=== PATIENT | male | born 2000 | race Caucasian/White ===

== ENCOUNTER 2021-04-22 14:01 | Emergency (ER) | payer MEDICAID ==
[~2021-04-22] VITALS: Ht 177.8 cm; Wt 96.8 kg
[2021-04-22 14:46] VITALS: BP 138/54; PULSE 95; TEMP 97.8
== END 2021-04-22 14:45 | disposition home or self-care (01) ==
LOC: COL.ER 14:01
DX: R60.0 Localized edema (principal)

== ENCOUNTER 2021-04-22 22:14 | Emergency (ER) | payer MEDICAID ==
[~2021-04-22] VITALS: Ht 177.8 cm; Wt 96.8 kg
[2021-04-22 22:19] VITALS: TEMP 97.6
[2021-04-22 23:51] LABS: BASO % 0.2 % (0.0-2.0); EOS # 0.1 K/mm3 (0.0-0.7); EOS % 0.4 % (0.0-4.0); GRAN # 7.9 K/mm3 (1.4-6.5); GRAN % 58.5 % (42.2-75.2); HEMATOCRIT 47.6 % (36.0-47.0); HEMOGLOBIN 16.5 g/dl (12.5-16.1); LYMPH # 4.4 K/mm3 (1.2-3.4); LYMPH % 32.9 % (20.0-51.0); MEAN CELL VOLUME 86 fl (80.0-95.0); MEAN CORPUSCULAR HEMOGLOBIN 30 pg (26-32); MEAN CORPUSCULAR HGB CONC 35 g/dl (33.0-37.0); MEAN PLATELET VOLUME 9.6 fl (7.4-10.4); MONO % 7.3 % (1.7-9.3); PLATELET COUNT 285 K/mm3 (130-400); RED BLOOD COUNT 5.52 M/mm3 (4.20-5.60); REDCELL DISTRIBUTION WIDTH-CV 12.2 % (11.5-14.5)
[2021-04-23 00:05] LABS: CALCIUM 9.1 mg/dL (8.4-10.2); CREATININE, serum 1.03 mg/dL (0.72-1.25); POTASSIUM 3.6 mmol/L (3.5-4.5)
[2021-04-23 01:03] VITALS: BP 114/78; PULSE 72
== END 2021-04-23 01:03 | disposition other institution (70) ==
LOC: COL.ER 22:14
PROVIDERS: Physician Assistant
DX: F45.8 Other somatoform disorders (principal)

== ENCOUNTER 2021-07-18 14:46 | Emergency (ER) | payer MEDICAID ==
[~2021-07-18] VITALS: Ht 177.8 cm; Wt 100.0 kg
[2021-07-18 14:56] VITALS: BP 124/75; TEMP 97.9
[2021-07-18] MEDS ORDERED: NORCO 325 MG-51 TAB PO ×2 (16:45)
[2021-07-18 17:20] VITALS: PULSE 68
== END 2021-07-18 17:20 | disposition home or self-care (01) ==
LOC: COL.ER 14:46
DX: S52.122A Displaced fracture of head of left radius, initial encounter for closed fracture (principal); W05.1XXA Fall from non-moving nonmotorized scooter, initial encounter; Y92.410 Unspecified street and highway as the place of occurrence of the external cause